=== PATIENT | female | born 1935 | race Caucasian/White ===

== ENCOUNTER 2018-09-25 20:14 | Emergency (ER) | payer MEDICARE, BC ==
[2018-09-25] MEDS ORDERED: LEVO88TA43 PO (20:29)
[2018-09-25] MEDS ORDERED: APIX2.5T PO (20:29)
[2018-09-25] MEDS ORDERED: METO50TA19 PO (20:29)
[2018-09-25] MEDS ORDERED: NS(*) 0.9% 1000 ML BAG 1,000 ML IV ONE (20:30)
--- NOTE | 2018-09-25 20:49 | ER Report ---
History and Physical Time Seen By MD: 20:20 Hx. of Stated Complaint: patient started having fever today, highest reading she has gotten at home was 102.9. Patient states she has been in a-fib lately as well lately, does have history of it. Patient states also feeling dizzy, balance off, patient has cough, a little shortness of breath and nausea. HPI/ROS CHIEF COMPLAINT: Fever, cough, palpitations HISTORY OF PRESENT ILLNESS: 82-year-old female presents with palpitations that have just resolved. She states she feels like she has been in A. fib since noon today. She is on metoprolol and TeleQuest for A. fib. She also states that she has had a cough and shortness of breath since noon she has discomfort with cough ing and deep inspirations. She does not have chest pain in between coughing and deep inspirations. She has felt feverish since noon as well. She has no abdominal pain, no concerning headache, no leg swelling. She has never had a DVT or PE. There is no known family history of DVT or PE. She has had no recent travel patient has been previously healthy. She has no sick contacts. REVIEW OF SYSTEMS: Constitutional: above Eyes: No discharge. ENT: No sore throat. Cardiovascular: above Respiratory: above Gastrointestinal: No abdominal pain, no vomiting. Genitourinary: no dysuria Musculoskeletal: No back pain. Skin: No rashes. Neurological: No headache. Remainder of the 14 system rev: Yes Allergies: Coded Allergies: No Known Drug Allergies (Unverified , 09/25/18) Home Meds Active Scripts Azithromycin 250 Mg Tab (AZITHROMYCIN 250 MG TAB) 250 Mg Tablet, 1 TAB PO QDAY, #5 TAB Prov:ISRA WHEELER MD 09/26/18 Reported Medications Metoprolol Succinate (METOPROLOL SUCCINATE) 50 Mg Tab.er.24h, 1 TAB PO QDAY 09/25/18 Levothyroxine Sodium (SYNTHROID) 88 Mcg Tablet, 1 TAB PO QAM 09/25/18 Apixaban (ELIQUIS) 2.5 Mg Tablet, 1 TAB PO BID 09/25/18 Reviewed Nurses Notes: Yes Old Medical Records Reviewed: Yes Constitutional Vital Sign - Last 24 Hours 09/25/18 09/25/18 09/25/18 09/25/18 20:21 20:21 20:24 20:30 Temp 102.2 Pulse 82 83 Resp 24 22 B/P (MAP) 187/80 178/78 (111) Pulse Ox 86 93 O2 Delivery Room Air O2 Flow Rate 2.0 09/25/18 09/25/18 09/25/18 09/25/18 20:34 20:44 21:02 21:04 Pulse 77 76 78 Resp 12 13 14 B/P (MAP) 196/97 (130) 191/81 (117) Pulse Ox 93 92 95 09/25/18 09/25/18 09/25/18 09/25/18 21:14 21:19 21:24 21:29 Temp 100.9 Pulse 73 72 73 72 Resp 12 17 11 19 Pulse Ox 95 95 95 95 09/25/18 09/25/18 09/25/18 09/25/18 21:30 21:44 21:59 22:00 Pulse 73 74 Resp 19 74 B/P (MAP) 169/74 (105) 159/71 (100) Pulse Ox 94 92 09/25/18 09/25/18 09/25/18 09/25/18 22:14 22:29 22:30 22:44 Pulse 74 77 78 Resp 61 23 0 B/P (MAP) 163/82 (109) Pulse Ox 92 92 92 09/25/18 09/25/18 09/25/18 09/25/18 22:59 23:00 23:14 23:19 Pulse 75 76 78 Resp 21 13 15 B/P (MAP) 138/61 (86) Pulse Ox 93 92 93 09/25/18 09/25/18 09/25/18 09/26/18 23:30 23:34 23:49 00:00 Pulse 75 ??? Resp 17 B/P (MAP) 130/58 (82) 122/55 (77) Pulse Ox 93 09/26/18 09/26/18 09/26/18 09/26/18 00:04 00:19 00:30 00:34 Pulse 79 78 80 Resp 10 23 52 B/P (MAP) 108/55 (72) Pulse Ox 88 93 94 Intake and Output 09/25/18 09/25/18 09/26/18 15:01 23:01 07:01 Intake Total 1000 ml 100 ml Balance 1000 ml 100 ml Physical Exam General Appearance: The patient is alert, has no immediate need for airway protection and no signs of toxicity. Eyes: Pupils equal and round no pallor or injection. ENT, Mouth: Mucous membranes are moist. Respiratory: There are no retractions, lungs are clear to auscultation. Cardiovascular: Regular rate and rhythm. no m/r/g Gastrointestinal: Abdomen is soft and non tender, no masses, bowel sounds normal. Neurological: alert, oriented, no gross focal deficits Skin: Warm and dry, no rashes. Musculoskeletal: Extremities are nontender, nonswollen and have full range of motion. DIFFERENTIAL DIAGNOSIS: After history and physical exam differential diagnosis was considered for shortness of breath including but not limited to pulmonary infectious process, COPD, asthma, pulmonary embolus and congestive heart failure. Medical Decision Making Data Points Result Diagram: 09/25/18203809/25/182038 Laboratory Hematology Test 09/25/18 20:39 09/25/18 21:03 Red Blood Count 4.87 M/uL (4.17-5.56) Mean Corpuscular Volume 92.5 fL (80.0-96.0) Mean Corpuscular Hemoglobin 32.0 pg (26.0-33.0) Mean Corpuscular Hemoglobin Concent 34.6 g/dL (32.0-36.0) Red Cell Distribution Width 13.8 % (11.5-14.5) Mean Platelet Volume 8.1 fL (7.2-11.1) Neutrophils (%) (Auto) 88.9 % (39.4-72.5) Lymphocytes (%) (Auto) 6.5 % (17.6-49.6) Monocytes (%) (Auto) 4.0 % (4.1-12.4) Eosinophils (%) (Auto) 0.2 % (0.4-6.7) Basophils (%) (Auto) 0.4 % (0.3-1.4) Nucleated RBC Relative Count (auto) 0.0 /100WBC Neutrophils # (Auto) 13.3 K/uL (2.0-7.4) Lymphocytes # (Auto) 1.0 K/uL (1.3-3.6) Monocytes # (Auto) 0.6 K/uL (0.3-1.0) Eosinophils # (Auto) 0.0 K/uL (0.0-0.5) Basophils # (Auto) 0.1 K/uL (0.0-0.1) Nucleated RBC Absolute Count (auto) 0.00 K/uL Sodium Level 141 mmol/L (137-145) Potassium Level 3.7 mmol/L (3.5-5.0) Chloride Level 104 mmol/L (98-107) Carbon Dioxide Level 24 mmol/L (22-31) Blood Urea Nitrogen 13 mg/dl (7-18) Creatinine 0.70 mg/dl (0.52-1.04) Glomerular Filtration Rate Calc > 60.0 Random Glucose 133 mg/dl (75-110) Lactate 1.5 mmol/L (0.7-2.1) Calcium Level 9.6 mg/dl (8.4-10.2) Total Bilirubin 1.0 mg/dl (0.2-1.3) Aspartate Amino Transf (AST/SGOT) 28 U/L (0-35) Alanine Aminotransferase (ALT/SGPT) 36 U/L (0-56) Alkaline Phosphatase 71 U/L (0-126) Troponin I < 0.012 ng/ml B-Type Natriuretic Peptide 100 pg/ml (0-100) Total Protein 6.9 g/dl (6.3-8.2) Albumin 4.3 g/dl (3.5-5.0) Urine Color Straw Urine Clarity Clear Urine pH 6.0 pH (4.8-9.5) Urine Specific Mcgraw[place] 1.010 Urine Protein Negative mg/dL (NEGATIVE) Urine Glucose (UA) Negative mg/dL (NEGATIVE) Urine Ketones 20 mg/dL (NEGATIVE) Urine Blood Small (NEGATIVE) Urine Nitrite Negative (NEGATIVE) Urine Bilirubin Negative (NEGATIVE) Urine Urobilinogen Negative mg/dL (0.2-1.9) Urine Leukocyte Esterase Trace (NEGATIVE) Urine RBC 5 /HPF (0-2/HPF) Urine WBC 5 /HPF (0-5/HPF) Urine Squamous Epithelial Cells Few /LPF (</=FEW) Urine Bacteria Few /HPF (NONE-FEW) Urine Mucus None /HPF (NONE-FEW) Chemistry Test 09/25/18 20:39 09/25/18 21:03 White Blood Count 14.9 k/uL (4.5-11.0) Red Blood Count 4.87 M/uL (4.17-5.56) Hemoglobin 15.6 g/dL (12.0-16.0) Hematocrit 45.0 % (34.0-47.0) Mean Corpuscular Volume 92.5 fL (80.0-96.0) Mean Corpuscular Hemoglobin 32.0 pg (26.0-33.0) Mean Corpuscular Hemoglobin Concent 34.6 g/dL (32.0-36.0) Red Cell Distribution Width 13.8 % (11.5-14.5) Platelet Count 219 K/uL (150-450) Mean Platelet Volume 8.1 fL (7.2-11.1) Neutrophils (%) (Auto) 88.9 % (39.4-72.5) Lymphocytes (%) (Auto) 6.5 % (17.6-49.6) Monocytes (%) (Auto) 4.0 % (4.1-12.4) Eosinophils (%) (Auto) 0.2 % (0.4-6.7) Basophils (%) (Auto) 0.4 % (0.3-1.4) Nucleated RBC Relative Count (auto) 0.0 /100WBC Neutrophils # (Auto) 13.3 K/uL (2.0-7.4) Lymphocytes # (Auto) 1.0 K/uL (1.3-3.6) Monocytes # (Auto) 0.6 K/uL (0.3-1.0) Eosinophils # (Auto) 0.0 K/uL (0.0-0.5) Basophils # (Auto) 0.1 K/uL (0.0-0.1) Nucleated RBC Absolute Count (auto) 0.00 K/uL Glomerular Filtration Rate Calc > 60.0 Lactate 1.5 mmol/L (0.7-2.1) Calcium Level 9.6 mg/dl (8.4-10.2) Total Bilirubin 1.0 mg/dl (0.2-1.3) Aspartate Amino Transf (AST/SGOT) 28 U/L (0-35) Alanine Aminotransferase (ALT/SGPT) 36 U/L (0-56) Alkaline Phosphatase 71 U/L (0-126) Troponin I < 0.012 ng/ml B-Type Natriuretic Peptide 100 pg/ml (0-100) Total Protein 6.9 g/dl (6.3-8.2) Albumin 4.3 g/dl (3.5-5.0) Urine Color Straw Urine Clarity Clear Urine pH 6.0 pH (4.8-9.5) Urine Specific Mcg[place] 1.010 Urine Protein Negative mg/dL (NEGATIVE) Urine Glucose (UA) Negative mg/dL (NEGATIVE) Urine Ketones 20 mg/dL (NEGATIVE) Urine Blood Small (NEGATIVE) Urine Nitrite Negative (NEGATIVE) Urine Bilirubin Negative (NEGATIVE) Urine Urobilinogen Negative mg/dL (0.2-1.9) Urine Leukocyte Esterase Trace (NEGATIVE) Urine RBC 5 /HPF (0-2/HPF) Urine WBC 5 /HPF (0-5/HPF) Urine Squamous Epithelial Cells Few /LPF (</=FEW) Urine Bacteria Few /HPF (NONE-FEW) Urine Mucus None /HPF (NONE-FEW) Urinalysis Test 09/25/18 21:03 Urine Color Straw Urine Clarity Clear Urine pH 6.0 pH (4.8-9.5) Urine Specific Mcgraws 1.010 Urine Protein Negative mg/dL (NEGATIVE) Urine Glucose (UA) Negative mg/dL (NEGATIVE) Urine Ketones 20 mg/dL (NEGATIVE) Urine Blood Small (NEGATIVE) Urine Nitrite Negative (NEGATIVE) Urine Bilirubin Negative (NEGATIVE) Urine Urobilinogen Negative mg/dL (0.2-1.9) Urine Leukocyte Esterase Trace (NEGATIVE) Urine RBC 5 /HPF (0-2/HPF) Urine WBC 5 /HPF (0-5/HPF) Urine Squamous Epithelial Cells Few /LPF (</=FEW) Urine Bacteria Few /HPF (NONE-FEW) Urine Mucus None /HPF (NONE-FEW) EKG/Imaging EKG Interpretation 12 lead EKG: Rhythm: normal sinus rhythm [place]: normal QRS: normal ST segments: borderline st depresion ii, iii, avF; flipped T v5, 6, ii, iii, avF. No st elevations sinus rhythm with flipped t waves, borderline st depression. No prior ekg for comparision [ ] Monitor Interpretation: Normal Sinus Rhythm ED Course/Re-evaluation ED Course 82-year-old female presents with fever and cough concerning for potential pneumonia. She also complains of palpitations and felt like she was in A. fib, however upon arrival she is in sinus rhythm. Her EKG does show evidence of borderline ST depression in inferior leads as well as flipped T waves in V5 and 6. She does not have ST elevations. We do not have a prior EKG for comparison. Therefore we will order a troponin for low likelihood of ACS. Pt's findings ultimately most c/w pna; her cxr is read as normal, however I suspect bact pna so CT ordered. CT is c/w pna; after treatment with abx, pt feels comfortable withotu sob and without high risk features of pna by CURB 65; we ambulated on room air; pt maintains pulse ox above 90 and is not dyspneic. She feels comforable for d/c with azithro rx and SRP's. Decision to Disposition Date: Sep 26, 2018 Decision to Disposition Time: 01:06 Depart Departure Latest Vital Signs Vital Signs Date Time Temp Pulse Resp B/P (MAP) Pulse Ox O2 Delivery O2 Flow Rate FiO2 09/26/18 00:34 80 52 94 09/26/18 00:30 108/55 (72) 09/25/18 21:24 100.9 09/25/18 20:21 Room Air 09/25/18 20:21 2.0 Impression: Primary Impression: Pneumonia Condition: Improved Disposition: HOME OR SELF-CARE New Scripts Azithromycin 250 Mg Tab (AZITHROMYCIN 250 MG TAB) 250 Mg Tablet 1 TAB PO QDAY, #5 TAB Prov: ISRA WHEELER MD 09/26/18 Patient Instructions: Bacterial Pneumonia (ED) Additional Instructions: As we discussed, please return immediately if you have worsening difficulty breathing, feel weaker, or have any concerns. Please follow up with your primary doctor by the end of this week for further evaluation. Problem Qualifiers Primary Impression: Pneumonia Pneumonia type: due to unspecified organism Laterality: left Lung location: lower lobe of lung Qualified Codes: J18.1 - Lobar pneumonia, unspecified organism ISRA WHEELER MD Sep 25, 2018 20:49
[2018-09-25 20:58] LABS: PLATELET COUNT, AUTOMATED 219 K/uL (150-450)
[2018-09-25] MEDS ORDERED: AZITHROMYCIN(*) 500 MG 500 MG in NS(*) 0.9% 250 ML BAG 250 ML IVPB ONE (22:35)
[2018-09-25] MEDS ORDERED: cefTRIAXone(*) 1 GM VIAL 1 GM in NS(*) 0.9% 100 ML MINI-BAG 100 ML IVPB ONE (22:35)
--- NOTE | 2018-09-25 22:41 | EKG ---
FACILITY: [facility] PATIENT NAME: NEAL GUSMAN : [id number] MR: [id number] V: [id number] EXAM DATE: ORDERING PHYSICIAN: ISRA WHEELER TECHNOLOGIST: LEW Test Reason : CHEST PAIN Blood Pressure : / mmHG Vent. Rate : 075 BPM Atrial Rate : 075 BPM P-R Int : 138 ms QRS Dur : 100 ms QT Int : 400 ms P-R-T Axes : 087 078 033 degrees QTc Int : 446 ms Sinus rhythm Nonspecific ST and T wave abnormality Abnormal ECG No previous ECGs available Confirmed by MOISÉS LANDON ([id number]) on 09/26/2018 2:33:43 AM Referred By: Confirmed By:MOISÉS LANDON
--- NOTE | 2018-09-25 22:54 | RADIOLOGY IMAGING REPORT ---
[place] [facility] [place] NAME: Brenda Miranda : 1935 MR: [id number] V: [id number] EXAM DATE: ORDERING PHYSICIAN: ISRA WHEELER TECHNOLOGIST: Location: [facility] Patient: Brenda Miranda : 1935 Visit/Account:[id number] Date of Sevice: 09/25/2018 EXAMINATION: Chest 2 Views HISTORY: Cough, dyspnea COMPARISON: None. FINDINGS: Mild scarring or atelectasis at the lung bases. No suspicious focal consolidation. No pleural effusio n or pneumothorax. Normal cardiomediastinal silhouette. Aortic calcification. No acute osseous findings. Osteopenia. Surgical clips along the right axilla. IMPRESSION: No evidence of acute cardiopulmonary disease. Report Dictated By: Kenneth Quevedo MD at 09/25/2018 10:48 PM Report E-Signed By: Kenneth Quevedo MD at 09/25/2018 10:49 PM WSN:[id number]
--- NOTE | 2018-09-26 00:48 | RADIOLOGY IMAGING REPORT ---
FACILITY: [facility] PATIENT NAME: Brenda Miranda : 1935 MR: [id number] V: [id number] EXAM DATE: ORDERING PHYSICIAN: ISRA WHEELER TECHNOLOGIST: Location: [facility] - [place] Patient: Brenda Miranda : 1935 Visit/Account:[id number] Date of Sevice: 09/25/2018 COMPUTED TOMOGRAPHY CHEST WITHOUT INTRAVENOUS CONTRAST DATE OF EXAM: 09/25/2018 11:09 PM CLINICAL INDICATION: Fever, leukocytosis. COMPARISON: Same-day radiographs. TECHNIQUE: Noncontrast axial chest CT performed. Sagittal and coronal multiplanar reconstructions we re performed. One of the following dose optimization techniques was utilized in the performance of t his exam: Automated exposure control; adjustment of the mA and/or kV according to the patient's size; or use of an iterative reconstruction technique. Specific details can be referenced in the [facility]'s radiology CT exam operational policy. FINDINGS: Thyroid: Diminutive or absent. Thoracic inlet: No adenopathy. Heart and great vessels: Heart size is normal. Coronary artery calcifications. Nonaneurysmal aorta with mild atherosclerosis. Aberrant origin of the right subclavian artery. Mediastinum and ngoc: Normal. Lungs and pleura: Is patchy consolidation in the posterior left lower lobe with minimal adjacent ping undglass. Similar-appearing but smaller region of opacification in the posterior aspect of the right lower lobe. 2 mm subpleural nodule right upper lobe on image 44 series 2. No pleural effusion or p neumothorax. Breast and axilla: Right axillary clips and probable right-sided lumpectomy. Upper abdomen: Nonacute. Bones and soft tissues: No acute abnormality or suspicious lesion. Remote appearing mild compressio n deformity at T10. IMPRESSION: 1. Left larger than right posterior opacities in the lower lobes may be at least partially related t o scarring/atelectasis, but underlying infection is also a consideration, particularly on the left. 2. 2 mm right upper lobe pulmonary nodule. 3. 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 [employer] SOC[employer]ET[employer] FOLLOW-UP GUIDELINES FOR NEWLY DETECTED INCIDENTAL NODULES IN PERSONS 35 YEARS OF AGE OR OLDER. *These recommendations do NOT apply to lung cancer screening, patients with immunosuppression or bi ents with a known primary malignancy. SOLITARY SOLID NODULE If nodule size is < 6 mm: * Low risk patient ? No routine follow-up. * High risk patient ? Optional CT at 12 months. LOW RISK PATIENT: Minimal or absent history of tobacco use and of other known risk factors. HIGH RISK PATIENT: Tobacco use, family history of lung cancer, upper pulmonary lobe location of nodul e, presence of emphysema, pulmonary fibrosis, older age. Hector H, Kraig DP, Krystle THAO, et al. Guidelines for Management of Incidental Pulmonary Nodules Dete cted on CT Images: From the Fleischner Society 2017. Radiology. [facility] Report Dictated By: Robin Nguyen MD at 09/26/2018 12:34 AM Report E-Signed By: Robin Nguyen MD at 09/26/2018 12:42 AM WSN:[id number]
[2018-09-26 01:07] VITALS: BP 143/62
[2018-09-26] MEDS ORDERED: AZIT-18 PO (01:10)
== END 2018-09-26 01:22 | disposition home or self-care (01) ==
LOC: ER 20:25
DX: J18.1 Lobar pneumonia, unspecified organism (principal); R07.9 Chest pain, unspecified; R06.00 Dyspnea, unspecified
CPT/HCPCS: 71046; 71250; 81001; 83605; 83880; 84484; 85025; 93005; 96361; 96365; 99284; J0456; J0696; J7030; J7050; 82040; 82247; 82310; 82374; 82435; 82565; 82947; 84075; 84132; 84155; 84295; 84450; 84460; 84520

== ENCOUNTER → 2018-11-11 | Outpatient (CLI) | payer BC ==
[~2018-11-11] MED LIST: APIX2.5T PO; AZIT-18 PO; LEVO88TA43 PO; METO50TA19 PO
== END ==
LOC: US 01:07
PROVIDERS: ATTEND Internal Medicine
DX: I34.0 Nonrheumatic mitral (valve) insufficiency (principal)
CPT/HCPCS: 93306